=== PATIENT | female | born 1980 | race Caucasian/White ===

== ENCOUNTER 2022-07-22 07:45 | Emergency (ER) | payer BC ==
[2022-07-22] MEDS ORDERED: Ketorolac 30 MG/ML SDV IVPUSH ONE (08:14)
[2022-07-22 09:08] LABS: CARBON DIOXIDE,CO2 27.8 mmol/L (21.0-32.0); POTASSIUM,K 3.1 mmol/L (3.5-5.1)
[2022-07-22] MEDS ORDERED: Iopamidol 755 MG/ML 500 ML Multipack Bottle IVPUSH STA (10:46)
[2022-07-22 12:14] VITALS: BP 125/68; PULSE 75
== END 2022-07-22 12:13 | disposition home or self-care (01) ==
LOC: MW.ED 07:45
DX: R10.30 Lower abdominal pain, unspecified (principal); M54.50 Low back pain, unspecified; I10 Essential (primary) hypertension; E66.9 Obesity, unspecified; Z68.26 Body mass index [BMI] 26.0-26.9, adult
CPT/HCPCS: 36415; 74177; 80048; 81001; 81025; 85025; 96374; 99284; J1885; Q9967